=== PATIENT | female | born 2000 | race Caucasian/White ===

== ENCOUNTER 2024-02-10 11:01 | Emergency (ER) | payer OTHER ==
[~2024-02-10] VITALS: Ht 157.5 cm; Wt 108.0 kg
[2024-02-10 11:02] VITALS: BP 160/96; TEMP 97.5; O2SAT 98
[2024-02-10] MEDS: CIPROFLOXACIN 0.3% OPHTH SOLN 2.5ML OS ONE (11:50)
[2024-02-10] MEDS ORDERED: CIPR0.3S37 OS (11:52)
== END 2024-02-10 12:09 | disposition home or self-care (01) ==
LOC: M ED 11:01
DX: H10.32 Unspecified acute conjunctivitis, left eye (principal); F10.10 Alcohol abuse, uncomplicated; Z88.0 Allergy status to penicillin; Z88.1 Allergy status to other antibiotic agents; Z79.2 Long term (current) use of antibiotics